=== PATIENT | male | born 1950 | race Caucasian/White ===

== ENCOUNTER → 2019-07-09 | Outpatient (CLI) | payer MEDICARE ==
[~2019-07-09] MED LIST: METHACHOLINE KIT (J7674) INH ONE
--- NOTE | 2019-07-09 10:34 | PFTRPT ---
Site: [facility], [address] [place], [address] ID: [id number] Name: ANTONIETA ADAME Visit Date: 07/09/2019 Second ID: [id number] Referring Doctor: LISETTE MASON Reviewing Doctor: Greg Modi MD [employer] Wood: Graciela Zimmerman Age: 68 : 1950 Sex: Male Race: Height: 69.50 Inches Weight: 232.00 Lbs BSA: 2.21 Order IDs: [id number] Requested Test(s): <RESP-PFT.BROCHOPROV> Diagnosis: R05 puffs of albuterol for post bronchodilator. Review Status: Not Reviewed Pre-Bronch Post-Bronch Pred Actual %Pred Actual %Chng SPIROMETRY FVC (L) 4.46 3.43 76 3.57 4 FEV1 (L) 3.31 2.55 77 2.49 -2 FEV1/FVC (%) 74 74 100 70 -6 FEF 25% (L/sec) 7.67 5.97 77 6.22 4 FEF 50% (L/sec) 4.67 2.83 60 2.39 -15 FEF 75% (L/sec) 1.36 0.51 37 0.44 -13 FEF 25-75% (L/sec) 2.59 1.82 70 1.63 -10 FEF Max (L/sec) 8.55 8.33 97 8.21 -1 FIVC (L) 3.43 3.55 3 FIF 50% (L/sec) 4.54 5.87 129 6.10 3 FIF Max (L/sec) 6.00 6.38 6 Expiratory Time (sec) 8.55 9.42 10 Back Extrap Vol (L) 0.07 0.07 5 Time To FEFmax (sec) 0.055 0.056 2
== END ==
LOC: M CARPUL 09:13
PROVIDERS: ATTEND Nurse Practitioner Family
DX: R05 Cough (principal)
CPT/HCPCS: 94070; 95070; J7674